=== PATIENT | female | born 1955 | race Caucasian/White ===

== ENCOUNTER 2023-10-26 10:03 | Day surgery (SDC) | payer MEDICARE, OTHER, SELFPAY ==
[2023-10-26] VITALS (32 sets, daily range): BP systolic 82–153; BP diastolic 47–79; BMI 22.8
[2023-10-26 10:33] LABS: Hematocrit 41.5 % (37.0-47.0); Hemoglobin 14.3 g/dL (12.0-16.0); Mean Corp Hgb Conc. 34.5 g/dL (33.0-37.0); Mean Corpuscular Hgb 30.9 pg (27.0-31.0); Mean Corpuscular Volume 89.6 fL (81.0-99.0); Platelet Count 300 10^3/uL (130-400); Red Blood Cell Count 4.63 10^6/uL (4.20-5.40); Red Cell Dist. Width 12.3 % (11.5-14.5); White Blood Cell Count 8.6 10^3/uL (4.8-10.8)
[2023-10-26 10:43] LABS: INR 0.95; PT 12.5 Sec (11.4-14.6)
[2023-10-26 10:44] LABS: APTT 28.6 Sec (23.4-35.0)
[2023-10-26 10:49] LABS: Blood Urea Nitrogen 18 mg/dl (7-17); Calcium 9.4 mg/dl (8.4-10.2); Carbon Dioxide 29 mmol/L (22-30); Chloride 103 mmol/L (98-107); Estimated Creatinine Clearance 75 ml/min; Glucose 245 mg/dl (70-99); Potassium 4.2 mmol/L (3.5-5.1); Sodium 134 mmol/L (135-145); eGFR > 60.00
[2023-10-26 10:58] LABS: Glucose - Point of Care 241 mg/dl (70-99)
[2023-10-26] MEDS: NSS 500 IV (11:15)
--- NOTE | 2023-10-26 13:15 | W.SUR.PREOP ---
Pre-Operative Surgical Note
-
I have examined this patient prior to the performance of the scheduled procedure.
The patient's condition is unchanged from the time of the current History and
Physical and the patient is able to undergo the scheduled procedure.
--- NOTE | 2023-10-26 15:26 | W.PV.INTER ---
VPI Note
Pre Admission Note
Functional Status: Light Work
Ambulation: Ambulate Independently
Pre Op Medications
Pre Op ASA: Yes
Pre Op Statin: Yes
Pre Op JOSEFINA Inhibitor/ARB: No
Pre Op P2y12 Antagonist: Clopidogrel
Pre Op Beta Blockers: Chronic > 30 Days
Pre Op Chronic Anticoagulant: None
Pre Op Cilostazol: No
Post Op Medications
Post Op ASA: Yes
Post Op Statin: Yes
Post Op JOSEFINA Inhibitor/ARB: No
Post Op P2y12 Antagonist: Clopidogrel
Post Op Beta Blockers: Chronic > 30 Days
Post Op Chronic Anticoagulant: None
Post Op Cilostazol: No
[2023-10-26] MEDS: NSS 1000 IV (15:50)
[2023-10-26 16:12] LABS: Glucose - Point of Care 141 mg/dl (70-99)
--- NOTE | 2023-10-26 16:17 | PTCARENOTE ---
Unable to obtain doppler pulse to left DP. Left leg is cool to the touch. Dr Trejo and Hali SILVA both made aware and at pt bedside assessing pt's left leg. Dr Trejo able to obtain left femoral and left popliteal pulses via doppler. Hali SILVA
obtained weak doppler pulse left DP. No further treatment ordered. Will continue to monitor.
[2023-10-26] MEDS: NOVOLOG FLEXPEN-MODERATE RESISTANCE SC (16:40)
--- NOTE | 2023-10-26 17:07 | PTCARENOTE ---
Pt now with strong doppler pulses bilaterally and left leg is warmer.
--- NOTE | 2023-10-26 18:19 | OR.RPT ---
Operative Report
Operative Report
Date of Operation: 10/26/2023
Pre Op Diagnosis: Critical limb threatening ischemia, right lower extremity manifested by ischemic rest pain
Post Op Diagnosis: Critical limb threatening ischemia, right lower extremity, manifested by ischemic rest pain
Procedure:
1.) Intravascular lithotripsy to calcified stenosis involving the common femoral artery and proximal profunda femoral artery (6 mm x 60 mm shockwave M5 balloon)
2.) Balloon angioplasty of focal right distal external iliac artery stenosis
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
4.) Diagnostic aortobiiliac arteriogram
5.) Diagnostic right lower extremity arteriogram
6.) Ultrasound-guided percutaneous access to the left common femoral artery
Surgeon: Khoa Trejo III, MD
Anesthesia: Sedation with local
Fluoroscopy:
52.5 min
251 mGy
34.69 Gy.cm2
Complications: None
Estimated Blood Loss: Less than 10 cc
History and Indications for Procedure: 68-year-old female with ischemic rest pain involving her right foot.
Procedure in Detail: Estrellita Grewal was correctly identified and placed supine on the operating table. After adequate induction of anesthesia the bilateral groins were prepped and draped in the usual sterile fashion. A timeout was performed with the
nursing and anesthesia staff confirming the patient's identity as well as the nature and laterality of the procedure.
The left common femoral artery was identified under ultrasound guidance. The artery was patent. The superior and inferior aspects of the femoral head were identified with radiographic guidance and marked at the skin level. The proposed puncture site
was infiltrated with local anesthesia. We saved a copy of the ultrasound image to the medical record. Under ultrasound guidance we accessed the left common femoral artery with a micropuncture needle and upsized to a 5 Fr sheath over a Bentson wire.
The wire and a [employer] hook flush catheter were advanced into the distal abdominal aorta and a diagnostic aorto-biiliac arteriogram was performed:
AORTO-ILIAC ARTERIOGRAM:
Aorta: Patent. Several areas of luminal calcified plaque identified. No significant stenosis identified.
Right common iliac artery: Patent with no significant stenosis identified
Right external iliac artery: Patent. Sluggish flow compared to the left. At the distal external iliac artery near the inguinal ligament there is a focal high-grade stenosis.
Left common iliac artery: Patent with no significant stenosis identified
Left external iliac artery: Patent with no significant stenosis identified
Under roadmap guidance using a Glidewire and the [employer] hook catheter we selected the right common iliac artery and then the external iliac artery. A catheter was tracked up and over the aortic bifurcation and placed in the distal external iliac
artery. A diagnostic right lower extremity arteriogram was then performed which demonstrated the following:
RIGHT LOWER EXTREMITY:
Common femoral artery: Focal high-grade stenosis at the interface between the distal external iliac artery and proximal common femoral artery at the inguinal ligament. Heavy calcified plaque at the distal common femoral artery and extending into
the proximal profunda femoral artery.
Profunda femoral artery: Heavily calcified plaque in the proximal profunda contributing to a focal high-grade stenosis. More distal profunda branches are widely patent and the patient has a robust collateral network in the thigh
Superficial femoral artery: Thin wisp of proximal SFA is patent. Otherwise occluded.
Popliteal artery: Reconstitutes behind the knee. Focal calcification is identified. Artery behind the knee and below the knee patent with no stenosis identified.
Limited tibial artery flow identified on the initial runs.
ENDOVASCULAR INTERVENTION:
Systemic heparin was administered. Exchanged out for a 6 Fr 45 cm sheath over a [employer] wire. Selected the profunda femoral artery under roadmap guidance with Quickcross catheter and glidewire. The calcified stenosis was crossed. The wire and catheter
were advanced into a distal profunda femoral artery branch. Exchanged out for a 0.014 wire. Due to the heavily calcified nature of the distal common femoral artery and proximal profunda femoral arterial disease and in an effort to modify the
calcium to achieve maximum luminal gain with endovascular intervention I elected to proceed with intravascular lithotripsy. A 6 mm x 60 mm M5 Shockwave balloon was placed across the profunda femoral artery stenosis under roadmap guidance.
Alternating rounds of lithotripsy pulse delivery at sub-nominal pressure and angioplasty at nominal pressure was performed across the stenosis. In between rounds of pulse delivery and angioplasty the balloon was deflated and repositioned under
roadmap guidance. With repositioning of the balloon, the distal external iliac artery stenosis was also treated. All 300 pulses were delivered. Subsequent arteriogram demonstrated an excellent technical result. There was significant improvement in
flow through the profunda femoral artery and only mild residual stenosis was seen.
I then focused my attention on treating the superficial femoral artery. Under roadmap guidance I selected the small patent segment of proximal superficial femoral artery with a Glidewire and Quickcross catheter. Using this set up I was able to
cross the chronic occlusion. I reentered the popliteal artery behind the knee. The wire and catheter were advanced to the popliteal artery behind the knee and a subtraction arteriogram confirmed proper position in the true lumen. I then exchanged
out for a 0.014 wire. A 4 mm x 150 mm angioplasty balloon was used to predilate the entire length of SFA occlusion. I then exchanged back out for a Storq wire through the Quickcross catheter. Overlapping Zilver PTX stents were then placed from
the popliteal artery behind the knee to the SFA origin (6 mm x 140 mm (x2); 6 mm x 120 mm) to cover the entire length of occlusion. Each stent was positioned and deployed in the desired location individually under roadmap guidance. A 5 mm
angioplasty balloon was then used to profile the entire length of the stents.
COMPLETION ARTERIOGRAM: Excellent technical result. Brisk flow through the right external iliac artery with no residual stenosis identified. The right common femoral artery was patent with no significant residual stenosis. The profunda femoral
artery was patent with mild residual stenosis. Brisk flow was seen into the distal profunda femoral artery branches. The superficial femoral artery and popliteal artery were widely patent with brisk flow. The stents were widely patent with no
significant residual stenosis identified. There was dramatic improvement in tibial artery flow compared to pretreatment. The peroneal and posterior tibial arteries were patent. The anterior tibial artery was patent proximally but appeared
diminutive distally with flow lagging behind. Contrast flow was seen across the ankle and into the foot.
Satisfied with this result we then concluded the procedure. The sheath tip was pulled back into the left external iliac artery. Protamine was administered. The sheath was secured in place with the plan to pull it in the recovery room.
The patient tolerated the procedure well and was taken to the recovery area in stable condition.
Signed:
Khoa Trejo III, MD
[facility]
[phone] (cell)
[2023-10-26] MEDS: VASOTEC 10 MG PO (20:31)
[2023-10-26] MEDS: COREG 12.5 MG PO (20:34)
[2023-10-26] MEDS: LIPITOR 10 MG PO (21:26)
[2023-10-26] MEDS: ZETIA 10 MG PO (21:26)
[2023-10-26 21:42] LABS: Glucose - Point of Care 254 mg/dl (70-99)
[2023-10-26] MEDS: HEPARIN 5000 UNITS SC (23:13)
[2023-10-27 00:39] VITALS: BP 112/60
[2023-10-27 02:01] LABS: Glucose - Point of Care 276 mg/dl (70-99)
[2023-10-27 03:00] VITALS: BP 116/63
[2023-10-27 04:03] VITALS: BMI 22.7
[2023-10-27] MEDS: SYNTHROID 50 MCG PO (06:32)
[2023-10-27 08:00] VITALS: BP 136/62
[2023-10-27 08:01] LABS: Glucose - Point of Care 299 mg/dl (70-99)
[2023-10-27] MEDS: NOVOLOG FLEXPEN-MODERATE RESISTANCE 5 UNITS SC (08:04)
[2023-10-27] MEDS: LANTUS 0.440000000000000002 UNITS SC (08:04)
--- NOTE | 2023-10-27 08:13 | W.PN.VS ---
Addendum entered and electronically signed by Khoa Trejo III, MD 10/27/23 09:10:
This patient was seen and examined with SHIRA Holden. I agree with the history and physical exam as well as the assessment and plan.
Signed:
Khoa Trejo III, MD
[facility]
[phone] (kskn)
Original Note:
Today's Communication / Plan
-
Seen and assessed with Dr Trejo
Assessment/Plan
-
POD 1
IVL common femoral artery and proximal profunda femoral artery
Balloon angioplasty focal right distal external iliac artery stenosis
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
Diagnostic aortobiiliac arteriogram
Diagnostic right lower extremity arteriogram
Plan:
-Groin site stable
-DC when ride available
Subjective Data
-
Date of Service: October 27, 2023
Objective Data
-
Vital Signs
Temp Pulse Resp BP Pulse Ox
97 F 86 18 116/63 94
10/27/23 03:00 10/27/23 03:00 10/27/23 03:00 10/27/23 03:00 10/27/23 03:00
Intake and Output
10/26/23 10/27/23 10/28/23
06:59 06:59 06:59
Intake Total 175 / 175
Balance 175 / 175
Intake:
IV fluids (Total) 175 / 175
Other:
Number of approximated MODERATE 3
amounts of urine
Lab Results
10/26/23 10:18
10/26/23 10:18
Calcium 9.4 mg/dl (8.4-10.2) 10/26/23 10:18
[2023-10-27] MEDS: ASPIR LOW (ENTERIC COATED) 81 MG PO (08:21)
[2023-10-27] MEDS: VITAMIN D3 (cholecalciferol) 50 MCG PO (08:21)
[2023-10-27] MEDS: COREG 12.5 MG PO (08:21)
[2023-10-27] MEDS: VASOTEC 10 MG PO (08:21)
[2023-10-27] MEDS: HEPARIN 5000 UNITS SC (08:21)
[2023-10-27] MEDS: IMDUR (EXTENDED RELEASE) 60 MG PO (08:21)
[2023-10-27] MEDS: PLAVIX 75 MG PO (08:21)
[2023-10-27] MEDS: OSCAL CAL 500 500 MG PO (08:21)
--- NOTE | 2023-10-27 08:28 | W.DS.TRANS ---
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
-
Discharge Instructions:
Discharge Diagnosis/Procedures Intravascular lithotripsy to calcified stenosis
involving the common femoral artery and proximal
profunda femoral artery
Balloon angioplasty of focal right distal
external iliac artery stenosis
Balloon angioplasty and stenting of right
superficial femoral artery chronic total
occlusion
Diagnostic aortobiiliac arteriogram
Diagnostic right lower extremity arteriogram
Diet Diabetic, Carb Controlled
Activity No strenuous activity
Driving Restrictions No driving for 24 hours
Bathing Restrictions OK to Shower
Others Tests Follow-up ultrasound is on 11/24/2023 at 11 AM
here at [facility]
Instructions:
Stand-Alone Forms: DC Instr - Vascular OR
Changes to Home Medications: No
Discharge Medications:
DC Medications w/original date entered in [employer]
aspirin 81 mg tablet,delayed release 81 mg PO DAILY 10/22/23
atorvastatin 10 mg tablet 10 mg PO HS 10/22/23
bepotastine besilate 1.5 % eye drops 1 drp ophthalmic (eye) BIDPRN PRN allergy 10/22/23
calcium carbonate 600 mg calcium (1,500 mg) tablet (Calcium) 600 mg PO DAILY 10/22/23
carvedilol 12.5 mg tablet 12.5 mg PO BID 10/22/23
cholecalciferol (vitamin D3) 50 mcg (2,000 unit) tablet (Vitamin D3) 50 mcg PO DAILY 10/22/23
clopidogrel 75 mg tablet 75 mg PO DAILY 10/22/23
coQ10 (ubiquinol) 200 mg capsule 200 mg PO DAILY 10/22/23
enalapril maleate 10 mg tablet 10 mg PO BID 10/22/23
ezetimibe 10 mg tablet 10 mg PO HS 10/22/23
fexofenadine 180 mg tablet 180 mg PO DAILY PRN allergy 10/22/23
insulin aspart U-100 100 unit/mL (3 mL) subcutaneous pen (Novolog FlexPen U-100 Insulin aspart) 5 - 7 sliding scale dose SC DIRECTED 10/22/23
insulin degludec 100 unit/mL (3 mL) subcutaneous pen (Tresiba FlexTouch U-100 insulin) 44 unit SC DAILY 10/22/23
isosorbide mononitrate 60 mg tablet,extended release 24 hr 60 mg PO DAILY 10/22/23
levothyroxine 50 mcg tablet 50 mcg PO DAILY 10/22/23
triamcinolone acetonide 0.1 % topical ointment 1 applic topical PRN PRN eczema 10/22/23
zinc acetate 50 mg (zinc) capsule 50 mg PO DAILY 10/22/23
lactobacillus comb no.10 20 billion cell capsule (Probiotic) 20,000 mmu cells PO DAILY 10/26/23
Home Medication Changes
Pending Results: No
--- NOTE | 2023-10-27 08:28 | W.DCSUMMARY ---
Discharge Summary
Discharge Data
Date of Admission: 10/26/23
Date of Discharge: 10/27/23
-
Pending Results: No
Hospital Course
Attending: Dr. Trejo
Consultants: None
Allergies: NKDA
Procedure with date: 10/26/2023
1.) Intravascular lithotripsy to calcified stenosis involving the common femoral artery and proximal profunda femoral artery (6 mm x 60 mm shockwave M5 balloon)
2.) Balloon angioplasty of focal right distal external iliac artery stenosis
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
4.) Diagnostic aortobiiliac arteriogram
5.) Diagnostic right lower extremity arteriogram
6.) Ultrasound-guided percutaneous access to the left common femoral artery]
History of present illness: The patient is an 68-year-old female with multiple medical conditions including: carotid stenosis, diabetes, heart disease, peripheral artery disease, hypertension, coronary artery bypass, non-smoker. Patient presented on
10/26/2023 for scheduled procedure with Dr. Trejo. Patient presented at baseline health with no reports of recent illness or trauma.
Hospital Course: Briefly, the patient underwent scheduled angiogram without complications, and recovered in recovery room. Following recovery phase one and two patient was transferred to the medical floor for continued monitoring. POD #1 (10/27/2023)
Patient doing well overall and tolerating PO diet. Surgical site clean, dry, intact and soft. No evidence of hematoma. Patient able to ambulate without difficulty or incident. Patient stable for discharge to home.
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 All instructions were given to the patient in both written and verbal form and the patient expressed understanding.
Discharge Plan
-
Patient Disposition: Home (Routine Discharge)
Discharge Diagnosis/Procedures: Intravascular lithotripsy to calcified stenosis involving the common femoral artery and proximal profunda femoral artery
Balloon angioplasty of focal right distal external iliac artery stenosis
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
Diagnostic aortobiiliac arteriogram
Diagnostic right lower extremity arteriogram
Condition: Good
Diet: Diabetic, Carb Controlled
Activity: No strenuous activity
Driving Restrictions: No driving for 24 hours
Bathing Restrictions: OK to Shower
Others Tests: Follow-up ultrasound is on 11/24/2023 at 11 AM here at [facility]
Stand Alone Forms: DC Instr - Vascular OR
Referrals:
Lyudmila Deal PA-C [Specified Professional Personl] - 12/02/23 3:15 pm (Vascular follow up)
UNKNOWN - PT DOES,NOT KNOW [Family Provider] -
Prescriptions:
Continued
carvedilol 12.5 mg Tablet
12.5 mg PO BID
zinc acetate 50 mg (zinc) Capsule
50 mg PO DAILY
enalapril maleate 10 mg Tablet
10 mg PO BID
atorvastatin 10 mg Tablet
10 mg PO HS
clopidogrel 75 mg Tablet
75 mg PO DAILY
fexofenadine 180 mg Tablet
180 mg PO DAILY PRN (Reason: allergy)
aspirin 81 mg Tablet,Delayed Release (Dr/Ec)
81 mg PO DAILY
isosorbide mononitrate 60 mg Tablet Extended Release 24 Hr
60 mg PO DAILY
calcium carbonate [Calcium 600] 600 mg calcium (1,500 mg) Tablet
600 mg PO DAILY
levothyroxine 50 mcg Tablet
50 mcg PO DAILY
triamcinolone acetonide 0.1 % Ointment
1 applic TOPICAL PRN PRN (Reason: eczema)
ezetimibe 10 mg Tablet
10 mg PO HS
insulin aspart U-100 [Novolog FlexPen U-100 Insulin] 100 unit/mL (3 mL) Insulin Pen
5 - 7 sliding scale dose SC DIRECTED
Rx Instructions:
TID AC
cholecalciferol (vitamin D3) [Vitamin D3] 50 mcg (2,000 unit) Tablet
50 mcg PO DAILY
bepotastine besilate 1.5 % Drops
1 drp OPHTHALMIC (EYE) BIDPRN PRN (Reason: allergy)
coQ10 (ubiquinol) 200 mg Capsule
200 mg PO DAILY
insulin degludec [Tresiba FlexTouch U-100] 100 unit/mL (3 mL) Insulin Pen
44 unit SC DAILY
Rx Instructions:
Pt states she took 15 units this morning due to today's procedure.
Probiotic 20 billion cell Capsule
20,000 mmu cells PO DAILY
Discharge Orders:
Discharge Patient (As Directed); Ordered 10/27/23
Ordered By: Jacy Chen
[2023-10-27 09:43] LABS: Hepatitis C Antibody Negative (Negative)
--- NOTE | 2023-10-27 09:53 | CM ---
Patient seen bedside.
Patient independent prior to admission.
Patient lives with spouse in 2 story home.
No AD, No hx VN.
PCP: Vilma Duffy NP, [facility]
Pharmacy: [facility]
Plan: home no needs.
== END 2023-10-27 10:51 | disposition home or self-care (01) ==
LOC: CATH 10:03
PROVIDERS: ATTENDING PHYSICIAN Surgery Vascular Surgery
DX: I70.221 Atherosclerosis of native arteries of extremities with rest pain, right leg (principal); I65.29 Occlusion and stenosis of unspecified carotid artery; E11.9 Type 2 diabetes mellitus without complications; I10 Essential (primary) hypertension; Z79.82 Long term (current) use of aspirin; Z79.4 Long term (current) use of insulin; Z79.02 Long term (current) use of antithrombotics/antiplatelets
CPT/HCPCS: 37220; C9764; 75625; 75716; 76937; 80048; 82962; 85027; 85610; 85730; 86803; 86850; 86900; 86901; 93005; C1725; C1769; C1874; Q9967

== ENCOUNTER → 2023-11-09 09:46 | Outpatient (REF) | payer MEDICARE, OTHER, SELFPAY | LOC: RAD 09:46 | PROVIDERS: ATTENDING PHYSICIAN Surgery Vascular Surgery | DX: I77.9 Disorder of arteries and arterioles, unspecified (principal) | CPT/HCPCS: 93922; 93925 ==

== ENCOUNTER → 2024-01-21 13:39 | Outpatient (REF) | payer MEDICARE, OTHER, SELFPAY | LOC: RAD 13:39 | PROVIDERS: ATTENDING PHYSICIAN Registered Nurse | DX: I73.9 Peripheral vascular disease, unspecified (principal) | CPT/HCPCS: 93922; 93925 ==

== ENCOUNTER → 2024-07-22 09:36 | Outpatient (REF) | payer MEDICARE, OTHER, SELFPAY | LOC: RAD 09:36 | PROVIDERS: ATTENDING PHYSICIAN Registered Nurse | DX: I77.9 Disorder of arteries and arterioles, unspecified (principal) | CPT/HCPCS: 93922; 93925; 93978 ==

== ENCOUNTER → 2025-01-25 12:34 | Outpatient (REF) | payer MEDICARE, OTHER, SELFPAY | LOC: RAD 12:34 | PROVIDERS: ATTENDING PHYSICIAN Surgery Vascular Surgery | DX: I73.9 Peripheral vascular disease, unspecified (principal) | CPT/HCPCS: 93922; 93925 ==